=== PATIENT | female | born 1960 | race Asian ===

== ENCOUNTER 2018-11-29 18:40 | Emergency (ER) | payer SELFPAY ==
[~2018-11-29] VITALS: Ht 157.5 cm; Wt 49.9 kg
[2018-11-29 21:51] VITALS: BP 121/68
[2018-11-29] MEDS ORDERED: BACLOFEN 10 MG TAB PO ONE (22:15)
[2018-11-29] MEDS ORDERED: HYDROcodone-ACET 10/325MG TAB PO ONE (22:15)
== END 2018-11-29 22:54 | disposition home or self-care (01) ==
LOC: EDBD 18:40 → ER 18:40
DX: S80.12XA Contusion of left lower leg, initial encounter (principal); S80.11XA Contusion of right lower leg, initial encounter; R07.89 Other chest pain; M54.5 Low back pain; V43.52XA Car driver injured in collision with other type car in traffic accident, initial encounter; Y93.89 Activity, other specified; Y99.8 Other external cause status; Y92.410 Unspecified street and highway as the place of occurrence of the external cause
CPT/HCPCS: 71045; 72100

== ENCOUNTER 2019-09-21 09:40 | Inpatient (IN) | payer OTHER ==
[~2019-09-21] VITALS: Ht 149.9 cm; Wt 57.6 kg
[2019-09-21] MEDS ORDERED: LIDOCAINE VISCOUS 2% 15ML UD MT ONE (10:15)
[2019-09-21 14:10] LABS: Basophils # (auto) 0.1 10 ^3/uL (0-0.2); Basophils % (auto) 0.9 % (0.0-2.0); Eosinophils # (auto) 0.1 10 ^3/uL (0-0.8); Eosinophils % (auto) 1.8 % (0.0-7.0); Hematocrit 37.7 % (36.0-46.0); Hemoglobin 12.3 g/dL (12.2-16.2); Lymphocytes # (auto) 2.8 10 ^3/uL (0.4-5.4); Lymphocytes % (auto) 47.4 % (10.0-50.0); Mean Corpuscular Hgb Conc. 32.6 g/dL (32.0-36.0); Mean Corpuscular Volume 91.9 fL (80.0-100.0); Monocytes # (auto) 0.3 10 ^3/uL (0-1.3); Monocytes % (auto) 5.7 % (0.0-12.0); Neutrophils # (auto) 2.6 10 ^3/uL (1.6-8.6); Neutrophils % (auto) 44.2 % (37.0-80.0); Nucleated Red Blood Cells % 0.2 %; Platelet Count (auto) 273 10^3/uL (140-450)
[2019-09-21 14:29] LABS: BUN/Creatinine Ratio 22.5; Calcium 8.8 mg/dL (8.5-10.1); Potassium 3.5 mmol/L (3.5-5.1)
[2019-09-21] MEDS ORDERED: LIDOCAINE VISCOUS 2% 15ML UD MT PRN (14:30)
[2019-09-21] MEDS ORDERED: DOXYCYCLINE 100MG/250ML 250 ML IV ONE (14:30)
[2019-09-21] MEDS ORDERED: methylPREDNISolone SOD SUCC 40 MG/ML VL IV ONE (14:30)
[2019-09-21] MEDS: D5W/SOD CHL 0.45% 1,000 ML IV SCH (14:31)
[2019-09-21] MEDS ORDERED: NITROGLYCERIN 0.4 MG SL TAB SL PRN (14:45)
[2019-09-21] MEDS ORDERED: ONDANSETRON HCL 4 MG/2 ML VIAL IV PRN (14:45)
[2019-09-21] MEDS ORDERED: MORPHINE SULF INJ 2 MG/ML SYRINGE 1ML IV PRN ×2 (14:45)
[2019-09-21] MEDS ORDERED: LORazepam 2MG/ML-1ML VIAL IV PRN (14:45)
[2019-09-21 15:00] LABS: Cholesterol 204 mg/dL (< 200); HDL Cholesterol 58 mg/dL (40-59); LDL Cholesterol 129 mg/dL (< 100); Triglycerides 169 mg/dL (< 150)
[2019-09-21] MEDS ORDERED: ETOMIDATE (2MG/ML) 20ML VIAL IV ONE (15:00)
[2019-09-21] MEDS ORDERED: KETAMINE 50mg/ML 10ml Vial (500mg/10ml) IV ONE ×2 (15:15→16:15)
[2019-09-21 19:35] VITALS: BP 115/56
[2019-09-21] MEDS: DOXYCYCLINE 100MG/250ML 250 ML IV SCH (21:57)
[2019-09-21] MEDS: methylPREDNISolone SOD SUCC 40 MG/ML VL IV SCH (21:58)
[2019-09-21] MEDS ORDERED: ATORVASTATIN 20 MG TAB PO SCH (22:00)
[2019-09-21] MEDS: FAMOTIDINE (10MG/ML) 2ML VL IV SCH (22:05)
[2019-09-21] MEDS ORDERED: ATOR10TA PO (23:06)
[2019-09-21] MEDS ORDERED: OMEP20TA PO (23:06)
[2019-09-21] MEDS ORDERED: MISC1CAP PO (23:06)
[2019-09-21 23:15] VITALS: BP 115/56
[2019-09-22 01:35] LABS: Urine Bacteria NONE SEEN /hpf (None Seen); Urine Blood Negative /uL (Negative); Urine Mucus FEW (None Seen); Urine Specific Gravity 1.023 (1.001-1.035); Urine WBC 5 /hpf (0 - 5)
[2019-09-22 01:45] LABS: Alcohol, Urine < 3.0 mg/dL (0-10); Amphetamine Screen, Urine NEGATIVE (NEGATIVE); Barbiturate Scree,Urine NEGATIVE (NEGATIVE); Benzodiazephine Screen, Urine NEGATIVE (NEGATIVE); Cannabinoid Screen, Urine NEGATIVE (NEGATIVE); Cocaine Screen, Urine NEGATIVE (NEGATIVE); Opiate Scree,Urine NEGATIVE (NEGATIVE); Phencyclidine Screen, Urine NEGATIVE (NEGATIVE)
[2019-09-22 05:26] VITALS: BP 112/60
[2019-09-22 06:12] LABS: Basophils # (auto) 0 10 ^3/uL (0-0.2); Basophils % (auto) 0.2 % (0.0-2.0); Eosinophils # (auto) 0 10 ^3/uL (0-0.8); Hematocrit 38.6 % (36.0-46.0); Hemoglobin 12.7 g/dL (12.2-16.2); Lymphocytes # (auto) 1.3 10 ^3/uL (0.4-5.4); Lymphocytes % (auto) 20.9 % (10.0-50.0); Mean Corpuscular Hemoglobin 30.3 pg (28.0-32.0); Mean Corpuscular Hgb Conc. 32.9 g/dL (32.0-36.0); Mean Corpuscular Volume 92.2 fL (80.0-100.0); Monocytes # (auto) 0 10 ^3/uL (0-1.3); Monocytes % (auto) 0.8 % (0.0-12.0); Neutrophils # (auto) 4.7 10 ^3/uL (1.6-8.6); Neutrophils % (auto) 78.1 % (37.0-80.0); Platelet Count (auto) 280 10^3/uL (140-450); Red Blood Cells 4.18 10^6/uL (4.0-5.20); Red Cell Distribution Width 11.9 % (11.8-14.3); White Blood Cell 6.1 10^3/uL (4.4-10.8)
[2019-09-22 06:27] LABS: INR 0.93 (0.9-1.15); Partial Thromboplastin Time 24.5 sec (23.0-31.2)
[2019-09-22 06:46] LABS: Potassium 3.7 mmol/L (3.5-5.1)
[2019-09-22 06:52] LABS: Albumin 3.9 g/dL (3.4-5.0); BUN/Creatinine Ratio 20.7; Bilirubin, Total 1.3 mg/dL (0.2-1.0); Calcium 8.8 mg/dL (8.5-10.1); Magnesium 2.3 mg/dL (1.6-2.6); Total Protein 7.7 g/dL (6.4-8.2)
[2019-09-22] MEDS: D5W/SOD CHL 0.45% 1,000 ML IV SCH (07:11)
[2019-09-22 08:00] VITALS: BP 100/72
[2019-09-22] MEDS: FAMOTIDINE (10MG/ML) 2ML VL IV SCH (09:56)
[2019-09-22] MEDS: DOXYCYCLINE 100MG/250ML 250 ML IV SCH (09:57)
[2019-09-22] MEDS: methylPREDNISolone SOD SUCC 40 MG/ML VL IV SCH (09:57)
[2019-09-22 12:00] VITALS: BP 114/71
[2019-09-22 13:49] VITALS: BP 114/71
== END 2019-09-22 14:30 | disposition home or self-care (01) | DRG 156 ==
LOC: ER 09:40 → TELE 09:41 → TELE-WESTW 19:39
PROVIDERS: ADMIT Hospitalist; ATTEND Hospitalist
DX: T17.228A Food in pharynx causing other injury, initial encounter (principal); E78.5 Hyperlipidemia, unspecified; K21.9 Gastro-esophageal reflux disease without esophagitis; M47.812 Spondylosis without myelopathy or radiculopathy, cervical region
CPT/HCPCS: 36415; 70360; 71045; 80048; 80053; 80061; 80307; 81001; 83036; 83735; 84100; 84484; 85025; 85610; 85730; 87040; 87086; 94640; 96374; G0378; J3490